=== PATIENT | female | born 1985 | race Caucasian/White ===

== ENCOUNTER 2020-02-11 12:17 | Outpatient (REF) | payer MEDICAID, SELFPAY ==
[2020-02-11 14:41] LABS: *AMPHETAMINES SCREEN URINE Negative (Negative); *BARBITURATES SCREEN URINE Negative (Negative); *BENZODIAZEPINES SCREEN URINE Negative (Negative); Cannabinoids THC Negative (Negative); Cocaine Screen,Urine Negative (Negative); METHADONE URINE SCREEN Negative (Negative); OPIATES URINE SCREEN Negative (Negative)
[2020-02-11 14:48] LABS: Tricyclic Antidepressants Negative (Negative)
[2020-02-16 11:24] LABS: Buprenorphine Negative; Norbuprenorphine Negative
== END 2020-02-11 12:37 ==
LOC: LBN 12:17
PROVIDERS: Visit Provider Advanced Practice Midwife
DX: Z34.92 Encounter for supervision of normal pregnancy, unspecified, second trimester (principal)
CPT/HCPCS: 80307

== ENCOUNTER 2020-02-19 01:48 | Outpatient (CLI) | payer MEDICAID, SELFPAY ==
--- NOTE | 2020-02-19 06:30 | DI.US_ITS ---
EXAM: US OB 2-3 TRIMESTER CLINICAL HISTORY: routine pnc,Z34.90. COMPARISON: No exams were available for comparison TECHNIQUE: Transabdominal obstetrical ultrasound performed. FINDINGS: Sonographic images demonstrate a single intrauterine gestation in variable position. Placenta:Anterior. No evidence of previa. Predicted gestational age: 22 weeks 3 days Estimated date of delivery 21 June 2020: heart rate motion is Dopplered at: 152 BPM. BPD: 58mm = 23+ 6 weeks HC: 215mm = 23+4 weeks AC: 183mm = 23+1 weeks FL: 40mm = 23+ 0 weeks EFW: 566 grams Grams = 78 % Sonographically assessed composite gestational age: 23+3 weeks Estimated date of delivery based on this ultrasound is: 14 June 2020 Amount of fluid is within normal limits. IMPRESSION: size and weight are within the expected range. survey is within normal limits. DATA REPOSITORY:
== END 2020-02-19 02:08 ==
PROVIDERS: Visit Provider Advanced Practice Midwife
DX: Z34.92 Encounter for supervision of normal pregnancy, unspecified, second trimester (principal); Z3A.23 23 weeks gestation of pregnancy
CPT/HCPCS: 76805

== ENCOUNTER 2020-04-07 08:12 | Outpatient (CLI) | payer MEDICAID, SELFPAY ==
[2020-04-07 16:38] LABS: Glucose,1 Hr (Glucola) 99 mg/dL (80-140)
[2020-04-07 16:41] LABS: HCT 32.2 % (36.0-46.0); HGB 10.8 g/dL (11.2-15.7); MCH 30.3 pg (27.0-33.0); MCHC 33.5 % (32.0-36.0); MCV 90.4 fL (80-95); MPV 11.3 fL (8.0-11.0); Platelet Count 222 10^3/uL (130-400); RBC 3.56 10^6/uL (3.93-5.22); RDW 12.7 % (11.7-14.6); RDW-SD 41.9 fL; WBC 10.67 10^3/uL (4.4-10.8)
== END 2020-04-07 08:32 ==
PROVIDERS: Visit Provider Advanced Practice Midwife
DX: Z34.93 Encounter for supervision of normal pregnancy, unspecified, third trimester (principal); Z3A.28 28 weeks gestation of pregnancy
CPT/HCPCS: 36415; 82950; 85027; 86850; 86900; 86901

== ENCOUNTER 2020-05-29 02:43 | Outpatient (CLI) | payer MEDICAID, SELFPAY ==
--- NOTE | 2020-05-29 06:30 | DI.US_ITS ---
EXAM: US OB ADELINE WEIGHT CLINICAL HISTORY: SIZE LESS THAN DATES,ADELINE,ADVANCED MATERNAL AGE,O09.529. TECHNIQUE: Transabdominal obstetrical ultrasound performed. COMPARISON: US US OB 2-3 TRIMESTER from 02/19/2020 FINDINGS: Transabdominal obstetrical ultrasound performed. FINDINGS: Number of fetuses: One. position: Cephalic. Placental location: Anterior. No evidence of previa. BIOMETRIC DATA: BPD: 92 mm = 37 weeks 2 days HC: 330 mm = 37 weeks 4 days AC: 345 mm = 38 weeks 3 days FL: 70 mm = 35 weeks 6 days EFW: 3259 grms 78% Composite Age: 37 weeks 2 days EDC: 06/17/2020 Heart Rate: 150BPM Amniotic fluid index: 17.0 cm. Visually, amount of fluid is within normal limits. The umbilical artery Doppler appears within normal limits. All umbilical artery values (S/D, RI, PI) are within the 50th to 95th percentile. IMPRESSION: 1. Single live intrauterine gestation as above. 2. Estimated weight is 3259gms. 3. Amniotic fluid index is 17 cm. Visually within normal limits. DATA REPOSITORY:
== END 2020-05-29 03:03 ==
PROVIDERS: Visit Provider Advanced Practice Midwife
DX: O09.523 Supervision of elderly multigravida, third trimester (principal)
CPT/HCPCS: 76816

== ENCOUNTER 2020-05-29 10:31 | Outpatient (REF) | payer MEDICAID, SELFPAY ==
[2020-05-29 11:08] LABS: *AMPHETAMINES SCREEN URINE Negative (Negative); *BARBITURATES SCREEN URINE Negative (Negative); *BENZODIAZEPINES SCREEN URINE Negative (Negative); Cannabinoids THC Negative (Negative); Cocaine Screen,Urine Negative (Negative); METHADONE URINE SCREEN Negative (Negative); OPIATES URINE SCREEN Negative (Negative)
[2020-05-29 11:09] LABS: Tricyclic Antidepressants Negative (Negative)
[2020-06-02 23:10] LABS: Buprenorphine Negative ng/mL (Cutoff: 5.0); Norbuprenorphine Negative ng/mL (Cutoff: 2.5)
== END 2020-05-29 10:32 | disposition home or self-care (01) ==
LOC: LBN 10:31
PROVIDERS: Visit Provider Advanced Practice Midwife
DX: Z34.93 Encounter for supervision of normal pregnancy, unspecified, third trimester (principal); Z36.85 Encounter for antenatal screening for Streptococcus B
CPT/HCPCS: 80307; 87081

== ENCOUNTER 2020-06-23 00:35 | Observation (INO) | payer MEDICAID, SELFPAY ==
[2020-06-23 01:05] VITALS: BP 120/82; PULSE 64; RESP 18; TEMP 36.8
[2020-06-23 01:42] VITALS: BP 120/82; PULSE 66; RESP 18; TEMP 36.8
--- NOTE | 2020-06-23 08:53 | W.PM.OBHPL1 ---
Date of service: 06/23/20 Time of Service: 01:40 Assessment and Plan Assessment and plan (1) Spontaneous onset of labor: Status: Acute Assessment and plan: SVE by RN. Cervix is closed and no evidence of active labor. Signs of labor were reviewed and Deborah returned home to await active labor. She has a friend and her weight engineer for support. OB-HPI Labor/Delivery History of Present Illness Reason for Visit: R/O LABOR Chief Complaint: Uterine Contractions. MICHELLE Calculator Estimated Delivery Date Method Current WG Current Estimate 06/21/20 Ultrasound #1 40w 2d Other Estimates 06/25/20 LMP (Uncertain) 39w 5d Comments: Deborah has been having irregular contractions all day. She has been supported by her weight engineer at home. Her contractions are every 2-4 minutes. History of Present Expected Delivery Route/Plan - CNM FOB: not involved, [place] Certified weight engineer Anabela Solomon for support, Doesn't want to know gender; if male, no circ Desires tub for labor and maybe To breastfeed, *important to pt that she be asked permission before touching* GBS neg Specific Issues/Plan 1. Transfer of care to [facility] from [facility] at 21 wks; had relocated from [place] transferring to [facility] at 10 weeks 2. Single parenting, very distressed about situation, has appt. /w. Dr. Ian Mercado ~02/14/20. 3. AMA- optional labs all wnl- ASA daily recommended 4. Received first covid vaccine [facility] Medical History (Updated 06/23/20 @ 08:58 by Jesenia Biggs CNM) Anxiety Chronic eczema (~02/11/20) Depression Surgical History (Updated 02/11/20 @ 09:07 by Cory Denson CNM) [place] teeth extracted Family History (Updated 02/11/20 @ 09:10 by Cory Denson CNM) Mother Hyperlipidemia Father Pacemaker Alcohol abuse Sister Cerebral palsy Depression Sister Thyroid disease Brother Depression Social History Smoking risk assessment performed?: No History History 1 Para 0 Hx # Term Pregnancies 0 Multiple births 0 Hx # Pregnancies 0 Ectopic pregnancies 0 AB induced 0 Hx Number of Living Children 0 AB spontaneous 0 Meds Home Medications and Allergies Allergies Allergy/AdvReac Type Severity Reaction Status Date / Time No Known Allergies Allergy Verified 06/19/20 08:56 Home Medications Medication Instructions Recorded Confirmed Type lactobacillus combination no.8 3 3,000 mmu cells PO DAILY 02/11/20 03/12/20 History billion cell capsule vitamin with calcium 1 tab PO DAILY #90 tab 03/12/20 Rx no.72-iron 27 mg-folic acid 1 mg tablet aspirin 162.5 mg capsule,extended 162.5 mg PO DAILY 04/28/20 04/28/20 History release 24 hr ferrous sulfate 325 mg (65 mg 325 mg PO DAILY 05/29/20 History iron) tablet Exam Physical Exam Vital signs: Temp Pulse Resp BP 98.2 F 66 18 120/82 06/23/20 01:42 06/23/20 01:42 06/23/20 01:42 06/23/20 01:42 Detailed Labor and Delivery Exam Dilation: 0 Landis Score: Cervical Points Exam 0 1 2 3 Dilation Closed 1-2cm 3-4 cm 5-6cm Effacement 0-30% 40-50% 60-70% 80% Consistency Firm Medium Soft Station -3 -2 -1,0 +1,+2 Position Posterior Mid Anterior Amniotic Membrane Status: Intact Contraction Frequency(min): every 2-4 Contraction Duration(sec): 50 Contraction Intensity: Mild Fetus A Heart Rate Baseline: 140 Monitor Accelerations: 15 X 15 Monitor Decelerations: None Variability: Moderate (6-25 BPM) Categories: Category I Results Results Group Beta Strep: Negative Blood Type: A+ Rubella Status: Immune Varicella Immunity: Immune Risk Assessment Risk for Shoulder Dystocia Historical/Initial OB: NEGATIVE FOR: Pelvic Abnormality, Pre- BMI>30, Previous Shoulder Dystocia or Previous Macrosomia Delivery Plan @ 36wks: spont labor, Risk for Pre-Eclampsia Date Initiated/Initials: 02/11/20 al, started at 21 wks Yes, if one or more: NEGATIVE FOR: Hx Pre-E/Gest HTN, Chronic HTN, Multiple Gestation, Pre-gestational DM, Renal Disease, Systemic Lupus or APA Syndrome Yes, if 2 or more: POSITIVE FOR: Nulliparity and Age>= 35 yrs; NEGATIVE FOR: >10yr btwn pregnancies, BMI>30, ethinicty, Mother/Sister w/ Pre-E or Previous IUGR Risk for Post- Hemorrhage Initial: NEGATIVE FOR: Multiple Gestation, Previous PPH, Known Clotting Deficiency, Grand Multiparity or Anticoagulation Risks Reviewed Risks Reviewed Upon Admission: Yes
--- NOTE | 2020-06-23 09:00 | W.PM.OBDISCH ---
Date of service: 06/23/20 Time of Service: 01:40 DS: Diagnosis Discharge Diagnosis (1) Spontaneous onset of labor: Status: Acute Asessment and Plan: signs of active labor reviewed. Deborah returned home to rest and will return with signs of active labor. Discharge Plan Disposition Patient Disposition: HOME Condition: Good Discharge Details Reason For Visit: R/O LABOR Admit Date/Time: 06/23/20 00:35 Admit Provider: Jesenia Biggs Attending Provider: Jesenia Biggs Primary Care Provider: Unknown,Unknown Home Meds and New Rx's Prescriptions: No Action Adult Probiotic 3 billion cell capsule 3,000 mmu cells PO DAILY RF: 0 aspirin 162.5 mg capsule,extended release 24hr 162.5 mg PO DAILY RF: 0 ferrous sulfate [Feosol] 325 mg (65 mg iron) tablet 325 mg PO DAILY RF: 0 PrePlus 27 mg iron- 1 mg tablet 1 tab PO DAILY Qty: 90 RF: 3 Discharge Instructions Instructions: Early Labor Signs (DC) Activity:: Activity as Tolerated Equipment/Supplies:: No Equipment Needed Diet:: As Tolerated Discharge Orders Discharge Orders: Discharge Order (Routine); Ordered 06/23/20 Ordered By: Jesenia Biggs Discharge Data Discharge Date/Time-TO BE ENTERED AT DEPARTURE: 06/23/20 01:45 OB:DS Summary Contraception Discussed Contraception Discussed: No, Status at Discharge Functional status at discharge: independent ambulation Overall status at discharge: patient is back to baseline Mental Status: mental status grossly normal Speech and Movement: speech and movement normal Mood: congruent mood Affect: normal affect Exam Physical Exam Vital signs: Temp Pulse Resp BP 98.2 F 66 18 120/82 06/23/20 01:42 06/23/20 01:42 06/23/20 01:42 06/23/20 01:42 [facility] Medical History (Updated 06/23/20 @ 08:58 by Jesenia Biggs CNM) Anxiety Chronic eczema (~02/11/20) Depression Surgical History (Updated 02/11/20 @ 09:07 by Cory Denson CNM) [place] teeth extracted Family History (Updated 02/11/20 @ 09:10 by Cory Denson CNM) Mother Hyperlipidemia Father Pacemaker Alcohol abuse Sister Cerebral palsy Depression Sister Thyroid disease Brother Depression Social History Smoking risk assessment performed?: No History History 1 Para 0 Hx # Term Pregnancies 0 Multiple births 0 Hx # Pregnancies 0 Ectopic pregnancies 0 AB induced 0 Hx Number of Living Children 0 AB spontaneous 0 DS: Data Vitals/I&O Vitals and I&O: Vital Signs Temperature 98.2 F 06/23/20 01:42 Pulse 66 06/23/20 01:42 Respiratory Rate 18 06/23/20 01:42 Blood Pressure 120/82 06/23/20 01:42 Blood Pressure Mean 94 06/23/20 01:05 Oxygen Delivery Method Room Air 06/23/20 01:42 Oxygen Flow Rate 0 06/23/20 01:42 Pain Level 3 06/23/20 01:42
== END 2020-06-23 01:45 | disposition home or self-care (01) ==
PROVIDERS: Admitting Provider Advanced Practice Midwife; Visit Provider Advanced Practice Midwife
DX: O47.1 False labor at or after 37 completed weeks of gestation (principal); Z3A.40 40 weeks gestation of pregnancy
CPT/HCPCS: G0378

== ENCOUNTER 2020-06-24 04:51 | Inpatient (IN) | payer MEDICAID, SELFPAY ==
[2020-06-24] VITALS (20 sets, daily range): BP systolic 107–274; BP diastolic 60–173; PULSE 61–113; RESP 16–20; TEMP 36.5–36.9; O2SAT 96–98
--- NOTE | 2020-06-24 07:19 | HPE_ITS ---
Date of service: 06/24/20 Time of Service: 07:20 Assessment and Plan Assessment and plan (1) Spontaneous onset of labor: Status: Acute Assessment and plan: Admit to Center. Comfort measures. Covid- 19 test. Anticipate . OB-HPI Labor/Delivery History of Present Illness Reason for Visit: RULE OUT LABOR Chief Complaint: Uterine Contractions. MICHELLE Calculator Estimated Delivery Date Method Current WG Current Estimate 06/21/20 Ultrasound #1 40w 3d Other Estimates 06/25/20 LMP (Uncertain) 39w 6d Comments: Prodromal labor x 36 hours. Assessed 06/23 at 0100. cervix closed. Took benadryl x 2 and slept intermittently yesterday. History of Present Expected Delivery Route/Plan - CNM FOB: not involved, [place] Certified eneida Solomon for support, Doesn't want to know gender; if male, no circ Desires tub for labor and maybe To breastfeed, *important to pt that she be asked permission before touching* GBS neg Specific Issues/Plan 1. Transfer of care to [facility] from [facility] at 21 wks; had relocated from [place] transferring to [facility] at 10 weeks 2. Single parenting, very distressed about situation, has appt. /w. Dr. Ian Mercado ~02/14/20. 3. AMA- optional labs all wnl- ASA daily recommended 4. Received first covid vaccine [facility] Medical History (Updated 06/23/20 @ 08:58 by Jesenia Biggs CNM) Anxiety Chronic eczema (~02/11/20) Depression Surgical History (Updated 02/11/20 @ 09:07 by Cory Denson CNM) [place] teeth extracted Family History (Updated 02/11/20 @ 09:10 by Cory Denson CNM) Mother Hyperlipidemia Father Pacemaker Alcohol abuse Sister Cerebral palsy Depression Sister Thyroid disease Brother Depression Social History Smoking/Tobacco Use Status: Never Smoking risk assessment performed?: Yes History History 1 Para 0 Hx # Term Pregnancies 0 Multiple births 0 Hx # Pregnancies 0 Ectopic pregnancies 0 AB induced 0 Hx Number of Living Children 0 AB spontaneous 0 Meds Home Medications and Allergies Allergies Allergy/AdvReac Type Severity Reaction Status Date / Time No Known Allergies Allergy Verified 06/19/20 08:56 Home Medications Medication Instructions Recorded Confirmed Type lactobacillus combination no.8 3 3,000 mmu cells PO DAILY 02/11/20 03/12/20 History billion cell capsule vitamin with calcium 1 tab PO DAILY #90 tab 03/12/20 Rx no.72-iron 27 mg-folic acid 1 mg tablet aspirin 162.5 mg capsule,extended 162.5 mg PO DAILY 04/28/20 04/28/20 History release 24 hr ferrous sulfate 325 mg (65 mg 325 mg PO DAILY 05/29/20 History iron) tablet Exam Physical Exam Vital signs: Temp Pulse Resp BP 97.9 F 61 18 113/74 06/24/20 04:57 06/24/20 04:57 06/24/20 04:57 06/24/20 04:57 Vital Signs Reviewed: Yes Constitutional Constitutional: mild distress Detailed Labor and Delivery Exam Dilation: 3 Effacement (%): 100 station: -1 Cervix position: mid Consistency: soft Landis Score: Cervical Points Exam 0 1 2 3 Dilation Closed 1-2cm 3-4 cm 5-6cm Effacement 0-30% 40-50% 60-70% 80% Consistency Firm Medium Soft Station -3 -2 -1,0 +1,+2 Position Posterior Mid Anterior Amniotic Membrane Status: Intact Contraction Frequency(min): Q4 min Contraction Duration(sec): 50-60 Contraction Intensity: Mild/Moderate Comments: The cervix was closed and stenotic on initial SVE by RN. I examined Deborah at 0715 and the os admitted one finger which allowed the cervix to stretch to 3 cms. Large bulging bag of water. Fetus A Heart Rate Baseline: 130 Monitor Accelerations: 15 X 15 Monitor Decelerations: None Variability: Moderate (6-25 BPM) Presentation: Vertex Categories: Category I Respiratory Exam Respiratory Exam: Normal Cardiovascular Exam Cardiovascular Exam: Normal Abdominal Exam Abdominal Exam: Normal Exam Exam: Normal Extremities Exam Extremities Exam: Normal Skin Exam Skin Exam: Normal Psychiatric Exam Psychiatric Exam: Normal (fatigued) Results Results Group Beta Strep: Negative Blood Type: A+ Rubella Status: Immune Risk Assessment Risk for Shoulder Dystocia Historical/Initial OB: NEGATIVE FOR: Pelvic Abnormality, Pre- BMI>30, Previous Shoulder Dystocia or Previous Macrosomia Delivery Plan @ 36wks: spont labor, Risk for Pre-Eclampsia Date Initiated/Initials: 02/11/20 al, started at 21 wks Yes, if one or more: NEGATIVE FOR: Hx Pre-E/Gest HTN, Chronic HTN, Multiple Gestation, Pre-gestational DM, Renal Disease, Systemic Lupus or APA Syndrome Yes, if 2 or more: POSITIVE FOR: Nulliparity and Age>= 35 yrs; NEGATIVE FOR: >10yr btwn pregnancies, BMI>30, ethinicty, Mother/Sister w/ Pre-E or Previous IUGR Risk for Post- Hemorrhage Initial: NEGATIVE FOR: Multiple Gestation, Previous PPH, Known Clotting Deficiency, Grand Multiparity or Anticoagulation At Risk?: No Risks Reviewed Risks Reviewed Upon Admission: Yes
[2020-06-24 08:08] LABS: HCT 36.7 % (36.0-46.0); HGB 12.4 g/dL (11.2-15.7); MCH 29.8 pg (27.0-33.0); MCHC 33.8 % (32.0-36.0); MCV 88.2 fL (80-95); MPV 11.1 fL (8.0-11.0); Platelet Count 262 10^3/uL (130-400); RBC 4.16 10^6/uL (3.93-5.22); RDW 13.2 % (11.7-14.6); RDW-SD 43.2 fL; WBC 13.71 10^3/uL (4.4-10.8)
--- NOTE | 2020-06-24 10:36 | W.PM.OBNL1 ---
Date of service: 06/24/20 Time of Service: 10:36 Pelvic Exam Dilation: 6 Effacement (%): 100 station: -1 Cervix Position: mid Consistency: soft Vaginal Exam Presentation: Cephalic Contractions Monitor Mode: External Contraction Frequency(min): every 4 Contraction Duration(sec): 60 Intensity: Mild/Moderate Fetus A Monitor: Doppler Heart Rate Baseline: 140 Presentation: Vertex Assessment and Plan Assessment and plan (1) Spontaneous onset of labor: Status: Acute Assessment and plan: Coping well with contractions. SVE performed and cervix 6 cms. Comfort measures provided. AROM discussed and Deborah is considering this option. Anticipate Objective Abnormal lab results 06/24/20 Range/Units 07:50 WBC 13.71 H (4.4-10.8) 10^3/uL MPV 11.1 H (8.0-11.0) fL Temp Pulse Resp BP 98.4 F 69 20 113/83 06/24/20 07:56 06/24/20 07:58 06/24/20 07:56 06/24/20 07:58 Laboratory Results WBC 13.71 10^3/uL (4.4-10.8) H 06/24/20 07:50 RBC 4.16 10^6/uL (3.93-5.22) 06/24/20 07:50 Hgb 12.4 g/dL (11.2-15.7) 06/24/20 07:50 Hct 36.7 % (36.0-46.0) 06/24/20 07:50 MCV 88.2 fL (80-95) 06/24/20 07:50 MCH 29.8 pg (27.0-33.0) 06/24/20 07:50 MCHC 33.8 % (32.0-36.0) 06/24/20 07:50 RDW 13.2 % (11.7-14.6) 06/24/20 07:50 Plt Count 262 10^3/uL (130-400) 06/24/20 07:50 MPV 11.1 fL (8.0-11.0) H 06/24/20 07:50 Patient ABO/Rh A Positive 06/24/20 07:50 Antibody Screen Negative 06/24/20 07:50 Subjective Patient Reports: No new Complaints Interval history since last seen: Deborah is coping well but fatigued. She is using the shower and various positions for comfort. Therapeutic rest was discussed but upon SVE, cervix is now 6 cms dilated. Results Hemoglobin/Hematocrit: Hgb 12.4 g/dL (11.2-15.7) 06/24/20 07:50 Hct 36.7 % (36.0-46.0) 06/24/20 07:50 Abnormal Lab Findings: Abnormal Labs 06/24/20 07:50 WBC 13.71 H MPV 11.1 H
[2020-06-24 10:37] LABS: Source Nasal/Nares
[2020-06-24 11:15] LABS: COVID-19 PCR Negative (Negative)
--- NOTE | 2020-06-24 14:49 | PGE_ITS ---
Date of service: 06/24/20 Time of Service: 14:50 Informed Consent Informed Consent: Risk,Benefits,Alternatives Discussed (AROM vs. expectant management) Pelvic Exam Dilation: 9 Effacement (%): 100 station: 0 Position: Other (unable to determine due to large bulging membranes) Cervix Position: mid Consistency: soft Vaginal Exam Presentation: Vertex Pooling: Negative Contractions Monitor Mode: Palpation Contraction Frequency(min): every 3-4 minutes Contraction Duration(sec): 60 Intensity: Moderate/Strong Fetus A Monitor: Doppler Heart Rate Baseline: 128 Presentation: Vertex FHR Rhythm: Regular Characteristics: Normal Decelerations: None Assessment and Plan Assessment and plan (1) Spontaneous onset of labor: Status: Acute Assessment and plan: Coping well with contractions. SVE performed and cervix 9/100/0. Deborah requested to return to the tub for comfort. She is experiencing a slight urge to bear down. Comfort measures provided. Anticipate Objective Abnormal lab results 06/24/20 Range/Units 07:50 WBC 13.71 H (4.4-10.8) 10^3/uL MPV 11.1 H (8.0-11.0) fL Temp Pulse Resp BP Pulse Ox 98.1 F 86 20 133/86 98 06/24/20 14:39 06/24/20 14:39 06/24/20 14:39 06/24/20 14:39 06/24/20 14:39 Laboratory Results WBC 13.71 10^3/uL (4.4-10.8) H 06/24/20 07:50 RBC 4.16 10^6/uL (3.93-5.22) 06/24/20 07:50 Hgb 12.4 g/dL (11.2-15.7) 06/24/20 07:50 Hct 36.7 % (36.0-46.0) 06/24/20 07:50 MCV 88.2 fL (80-95) 06/24/20 07:50 MCH 29.8 pg (27.0-33.0) 06/24/20 07:50 MCHC 33.8 % (32.0-36.0) 06/24/20 07:50 RDW 13.2 % (11.7-14.6) 06/24/20 07:50 Plt Count 262 10^3/uL (130-400) 06/24/20 07:50 MPV 11.1 fL (8.0-11.0) H 06/24/20 07:50 COVID-19 Source Nasal/nares 06/24/20 07:54 SARS-CoV-2 (PCR) Negative (Negative) 06/24/20 07:54 Patient ABO/Rh A Positive 06/24/20 07:50 Antibody Screen Negative 06/24/20 07:50 Subjective Patient Reports: No new Complaints Interval history since last seen: Agustina's labor continues to progress slowly with slight descent from -1 to 0 noted. She was using the tub for a long time and is coping well. She got out of the tub and ambulated and sat on the toilet for a while. She is receiving excellent support from Prabha, her parcel post carrier. SVE was performed and large bulging bag of water was palpated. She declines AROM and she said that she feels that that would make her feel 'rushed. Results Hemoglobin/Hematocrit: Hgb 12.4 g/dL (11.2-15.7) 06/24/20 07:50 Hct 36.7 % (36.0-46.0) 06/24/20 07:50 Abnormal Lab Findings: Abnormal Labs 06/24/20 07:50 WBC 13.71 H MPV 11.1 H
--- NOTE | 2020-06-24 17:39 | PGE_ITS ---
Date of service: 06/24/20 Time of Service: 17:39 Informed Consent Informed Consent: Risk,Benefits,Alternatives Discussed (AROM vs. expectant management, discussed pitocin augmentation if indicated.) Pelvic Exam Dilation: 8 Effacement (%): 100 station: 0 Position: OP Cervix Position: mid Consistency: soft Vaginal Exam Presentation: Vertex Pooling: Positive Comments: AROM performed in the tub for a large amount of clear fluid. The ce rvix is edematous and 8-9 cms prior to ROM. Contractions Monitor Mode: External Contraction Frequency(min): every 4 min Contraction Duration(sec): 60 Intensity: Moderate Fetus A Monitor: External (US) Heart Rate Baseline: 135 Presentation: Vertex Variability: Moderate (6-25 BPM) Categories: Category I FHR Rhythm: Regular Characteristics: Normal Accelerations: 15 X 15 Decelerations: None Amniotic Membrane Status: Ruptured Rupture Method: Artifical Amniotic Fluid: Clear Assessment and Plan Assessment and plan (1) Spontaneous onset of labor: Status: Acute Assessment and plan: Will continue to assess progress in labor. Will reassess by SVE 2 hours after AROM and discuss options if there is no progress. Will continue to offer pain relief methods. I discussed this plan with Dr Reyes who is the covering drill rig operator helper today and she agrees. Objective Abnormal lab results 06/24/20 Range/Units 07:50 WBC 13.71 H (4.4-10.8) 10^3/uL MPV 11.1 H (8.0-11.0) fL Temp Pulse Resp BP Pulse Ox 97.9 F 76 18 132/87 97 06/24/20 17:19 06/24/20 17:19 06/24/20 17:19 06/24/20 17:19 06/24/20 16:09 Laboratory Results WBC 13.71 10^3/uL (4.4-10.8) H 06/24/20 07:50 RBC 4.16 10^6/uL (3.93-5.22) 06/24/20 07:50 Hgb 12.4 g/dL (11.2-15.7) 06/24/20 07:50 Hct 36.7 % (36.0-46.0) 06/24/20 07:50 MCV 88.2 fL (80-95) 06/24/20 07:50 MCH 29.8 pg (27.0-33.0) 06/24/20 07:50 MCHC 33.8 % (32.0-36.0) 06/24/20 07:50 RDW 13.2 % (11.7-14.6) 06/24/20 07:50 Plt Count 262 10^3/uL (130-400) 06/24/20 07:50 MPV 11.1 fL (8.0-11.0) H 06/24/20 07:50 COVID-19 Source Nasal/nares 06/24/20 07:54 SARS-CoV-2 (PCR) Negative (Negative) 06/24/20 07:54 Patient ABO/Rh A Positive 06/24/20 07:50 Antibody Screen Negative 06/24/20 07:50 Subjective Patient Reports: No new Complaints Interval history since last seen: Deborah's labor has shown no progress since the previous exam. I discussed with her pitocin augmentation and/or to increase the frequency of her contractions. She declines an I.V. or pitocin augmentation. She declines pain medications. She expressed that she hopes for labor to progress naturally. She is very tired. She used the tub a second time for comfort for another 2.5 hours. She agreed to Artificial rupture of membranes and that was performed. She has been drinking adequate amounts of water for hydration. I encouraged her to ambulate and she was placed on the external monitor while seated on the toilet and ambulating in the room. Results Hemoglobin/Hematocrit: Hgb 12.4 g/dL (11.2-15.7) 06/24/20 07:50 Hct 36.7 % (36.0-46.0) 06/24/20 07:50 Abnormal Lab Findings: Abnormal Labs 06/24/20 07:50 WBC 13.71 H MPV 11.1 H
--- NOTE | 2020-06-24 19:28 | PGE_ITS ---
Date of service: 06/24/20 Time of Service: 19:28 Informed Consent Informed Consent: Risk,Benefits,Alternatives Discussed (AROM vs. expectant management, discussed pitocin augmentation if indicated.) Pelvic Exam Dilation: 8 Effacement (%): 100 station: +1 Position: OP Cervix Position: mid Consistency: soft Vaginal Exam Presentation: Vertex Pooling: Positive Contractions Monitor Mode: Palpation Contraction Frequency(min): every 4 min Intensity: Moderate/Strong Fetus A Monitor: External (US) Heart Rate Baseline: 140 Presentation: Vertex Variability: Moderate (6-25 BPM) Categories: Category I FHR Rhythm: Regular Characteristics: Normal Accelerations: 15 X 15 Decelerations: None Amniotic Membrane Status: Ruptured Assessment and Plan Assessment and plan (1) Spontaneous onset of labor: Status: Acute Assessment and plan: After a monitor tracing, will plan to continue with hydrotherapy and reassess in 1 hour. Assist with pushing when appropriate. A nticipate . Objective Abnormal lab results 06/24/20 Range/Units 07:50 WBC 13.71 H (4.4-10.8) 10^3/uL MPV 11.1 H (8.0-11.0) fL Temp Pulse Resp BP Pulse Ox 98.2 F 83 18 135/91 H 96 06/24/20 18:45 06/24/20 19:14 06/24/20 19:14 06/24/20 19:14 06/24/20 18:45 Laboratory Results WBC 13.71 10^3/uL (4.4-10.8) H 06/24/20 07:50 RBC 4.16 10^6/uL (3.93-5.22) 06/24/20 07:50 Hgb 12.4 g/dL (11.2-15.7) 06/24/20 07:50 Hct 36.7 % (36.0-46.0) 06/24/20 07:50 MCV 88.2 fL (80-95) 06/24/20 07:50 MCH 29.8 pg (27.0-33.0) 06/24/20 07:50 MCHC 33.8 % (32.0-36.0) 06/24/20 07:50 RDW 13.2 % (11.7-14.6) 06/24/20 07:50 Plt Count 262 10^3/uL (130-400) 06/24/20 07:50 MPV 11.1 fL (8.0-11.0) H 06/24/20 07:50 COVID-19 Source Nasal/nares 06/24/20 07:54 SARS-CoV-2 (PCR) Negative (Negative) 06/24/20 07:54 Patient ABO/Rh A Positive 06/24/20 07:50 Antibody Screen Negative 06/24/20 07:50 Subjective Patient Reports: No new Complaints Interval history since last seen: Deborah continues to use the tub and shower. She has been bearing down with contractions. When I asked her if she was feeling an urge to push, she stated she was pushing because I don't want pitocin. I examined her and her cervix remains 8-9 cms. It is loose and stretchy and the vertex is now at +1. She attempted a few pushes but the cervix was not reduceable. She is receiveing a lot of help with her contractions by pressure from her two doulas and this is helpful to her. After the exam, she was positioned on her hands and knees on the ball and she requested to return to the tub. Results Hemoglobin/Hematocrit: Hgb 12.4 g/dL (11.2-15.7) 06/24/20 07:50 Hct 36.7 % (36.0-46.0) 06/24/20 07:50 Abnormal Lab Findings: Abnormal Labs 06/24/20 07:50 WBC 13.71 H MPV 11.1 H
--- NOTE | 2020-06-24 22:44 | W.PM.OBNL1 ---
Date of service: 06/24/20 Time of Service: 23:28 Informed Consent Informed Consent: Risk,Benefits,Alternatives Discussed (AROM vs. expectant management) Pelvic Exam Dilation: 10 Effacement (%): 100 station: +2 Position: OP Vaginal Exam Presentation: Vertex Pooling: Positive Contractions Monitor Mode: External Contraction Frequency(min): every 4 min Contraction Duration(sec): 60 Intensity: Moderate/Strong Fetus A Monitor: External (US) Heart Rate Baseline: 150 Presentation: Vertex Variability: Moderate (6-25 BPM) Categories: Category I FHR Rhythm: Regular Characteristics: Normal Accelerations: Absent Decelerations: None Assessment and Plan Assessment and plan (1) Spontaneous onset of labor: Status: Acute Assessment and plan: Continue to assist with pushing. anticipate . Continuous monitor placed to assess FHR pattern Objective Abnormal lab results 06/24/20 Range/Units 07:50 WBC 13.71 H (4.4-10.8) 10^3/uL MPV 11.1 H (8.0-11.0) fL Temp Pulse Resp BP Pulse Ox 98.2 F 78 18 128/79 96 06/24/20 18:45 06/24/20 21:34 06/24/20 19:14 06/24/20 21:34 06/24/20 18:45 Laboratory Results WBC 13.71 10^3/uL (4.4-10.8) H 06/24/20 07:50 RBC 4.16 10^6/uL (3.93-5.22) 06/24/20 07:50 Hgb 12.4 g/dL (11.2-15.7) 06/24/20 07:50 Hct 36.7 % (36.0-46.0) 06/24/20 07:50 MCV 88.2 fL (80-95) 06/24/20 07:50 MCH 29.8 pg (27.0-33.0) 06/24/20 07:50 MCHC 33.8 % (32.0-36.0) 06/24/20 07:50 RDW 13.2 % (11.7-14.6) 06/24/20 07:50 Plt Count 262 10^3/uL (130-400) 06/24/20 07:50 MPV 11.1 fL (8.0-11.0) H 06/24/20 07:50 COVID-19 Source Nasal/nares 06/24/20 07:54 SARS-CoV-2 (PCR) Negative (Negative) 06/24/20 07:54 Patient ABO/Rh A Positive 06/24/20 07:50 Antibody Screen Negative 06/24/20 07:50 Subjective Patient Reports: New Complaints Interval history since last seen: Deborah has a strong uge to push and has been bearing down. A persistent anterior rim of cervix is present and I have atempted to reduce it with pushing with no success. Deborah has pushed in the shower, on toilet , on stool and in the tub with slow descent. She returned to bed and the anterior rim was reduced and she is pushing well. Results Hemoglobin/Hematocrit: Hgb 12.4 g/dL (11.2-15.7) 06/24/20 07:50 Hct 36.7 % (36.0-46.0) 06/24/20 07:50 Abnormal Lab Findings: Abnormal Labs 06/24/20 07:50 WBC 13.71 H MPV 11.1 H
[2020-06-25] VITALS (12 sets, daily range): BP systolic 95–139; BP diastolic 55–69; PULSE 75–85; RESP 16–18; TEMP 36.7–36.8; O2SAT 97
[2020-06-25] MEDS: Oxytocin 10 UNITS/ML VIAL IM (01:20)
--- NOTE | 2020-06-25 01:23 | W.OBDELIVERY ---
Date of service: 06/25/20 Time of Service: 01:23 OB Labor/ Delivery Information Baby A Delivery Delivery Method: Spontaneaous Presentation: Vertex Vertex Position: Right Occipital Anterior Cord Description-Baby A: 3 Vessels Amniotic Fluid: Clear Delivery Outcome: Liveborn Transferred: Remains with Mother Note: FHTs 130-140 by doppler during first stage of labor. FHTs 150-160s in second stage. Deborah progressed to full dilation after multiple attempts to reduce anterior lip of cervix after she began pushing. Second stage huddle was done. Deborah pushed well in multiple positions and had a spontaneous delivery of male delivered in NOEL position. The baby rotated to ADAM and the shoulders delivered with Deborah placed in [place] position due to hand presenting with the face and rotation of the head. Baby was placed on mother's abdomen and dried and stimulated. He had a spontaneous cry but decreased tone. Large asymmetric caput was noted on the baby's head. Cord was clamped and cut by Deborah. The placenta delivered spontaneously and appears to by intact with a three vessel cord. Pitocin 10 units was administered after delivery of the placenta. The perineum was inspected and there was a first degree laceration which was repaired with 3-0 vicryl suture under local anesthetic which Deborah tolerated well. The baby did breastfeed well after delivery. After delivery, Mother and baby were stable and bonding well in the delivery room. The uterus was 1 above U and to the left one hour after delivery. She was unable to void on the bedpan and a straight catherter was inserted. Labor/Delivery Information Number of Babies in Womb: 1 Group Beta Strep: Negative Rubella Status: Immune Blood Type: A+ Varicella Immunity: Immune Maternal Complications: None Stages of Labor Onset of Labor Date: 06/21/20 Onset of Labor Time: 22:00 Complete Dilatation Date: 06/24/20 Complete Dilatation Time: 23:15 Labor - Stage 1 Duration: 72 hours and 0 minutes ROM Baby A: 06/24/20 ROM Baby A: 16:20
[2020-06-25] MEDS: Ibuprofen 600 MG TAB PO ×3 (02:18→21:51)
[2020-06-25] MEDS: Acetaminophen 325 MG TAB 650 MG PO ×3 (02:19→21:51)
[2020-06-25 10:54] LABS: Varicella IgG Antibody Positive (See Note)
[2020-06-26 02:00] VITALS: BP 82/39; PULSE 75; RESP 18; TEMP 36.6
[2020-06-26 06:07] VITALS: BP 98/63; PULSE 75; RESP 18
[2020-06-26] MEDS: Docusate Sodium 100 MG CAP PO (06:40)
[2020-06-26] MEDS: Milk of Magnesia 30 ML CUP PO (06:41)
[2020-06-26 07:26] LABS: HCT 31.1 % (36.0-46.0); HGB 10.5 g/dL (11.2-15.7); MCH 30.2 pg (27.0-33.0); MCHC 33.8 % (32.0-36.0); MCV 89.4 fL (80-95); MPV 11.3 fL (8.0-11.0); Platelet Count 255 10^3/uL (130-400); RBC 3.48 10^6/uL (3.93-5.22); RDW 13.9 % (11.7-14.6); RDW-SD 45.6 fL; WBC 17.57 10^3/uL (4.4-10.8)
[2020-06-26] MEDS: Ibuprofen 600 MG TAB PO ×2 (07:45→15:30)
[2020-06-26] MEDS: Acetaminophen 325 MG TAB 650 MG PO ×2 (07:46→15:30)
[2020-06-26 08:00] VITALS: BP 98/63; PULSE 65; RESP 18; TEMP 36.6; O2SAT 99
--- NOTE | 2020-06-26 09:25 | W.PM.OBPNV1 ---
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 PP instructions reviewed and written copy will be given to pt PPD and baby-blues discussed at length Pt declines BCM, states she will not be sexually active F/up at 2 & 6 wks PP with baseball glove stuffer Subjective Subjective Patient comments: Pain well controlled, Tolerating diet and Flatus present [place] baby status: Doing well, Nursing well, Rooming in and Strong Bonding Observed feeding status: Exclusively breast feeding Exam Physical Exam Vital signs: Temp Pulse Resp BP Pulse Ox 97.9 F 65 18 98/63 L 99 06/26/20 08:00 06/26/20 08:00 06/26/20 08:00 06/26/20 08:00 06/26/20 08:00 Vital Signs Reviewed: Yes Constitutional Constitutional: no acute distress, average body habitus and cooperative HEENT Exam HEENT Exam: Normal Neck Exam Neck Exam: Normal Breast Exam Bilateral: Breast Exam: Normal and Soft Nipple Exam: Normal and Other (slightly pinked, pt reports minor soreness) Respiratory Exam Respiratory Exam: Normal Cardiovascular Exam Cardiovascular Exam: Normal Abdominal Exam Abdomen: Other (soft and nontender) Fundal Exam Fundus: Below Umbilicus and Firm Rectal Exam Rectal Exam: Normal Exam Perineum: Normal and Repair Intact External: Present vulvar erythema (labia majora mildly bruised and edematous bilaterally) Extremities Exam Extremity Exam: Normal Back/Spine/Pelvis Exam Back Exam: Normal Skin Exam Skin Exam: Normal Neurological Exam Neurological Exam: Normal Psychiatric Exam Psychiatric Exam: Normal DetailedPsychiatric Exam Psych Exam: Normal Affect (processing experience, appropriately emotional), Normal Thougth Process, Cooperative, Good Insight and Good Judgement Results Abnormal Lab Findings: Abnormal Labs 06/24/20 06/26/20 07:50 07:05 WBC 13.71 H 17.57 H RBC 3.48 L Hgb 10.5 L Hct 31.1 L MPV 11.1 H 11.3 H
--- NOTE | 2020-06-26 12:35 | W.PM.OBDISCH ---
Date of service: 06/26/20 Time of Service: 12:35 DS: Diagnosis Discharge Diagnosis (1) Term delivered: Status: Acute Discharge Plan Disposition Patient Disposition: HOME Condition: Good Discharge Details Reason For Visit: RULE OUT LABOR Admit Date/Time: 06/24/20 07:14 Admit Provider: Jesenia Biggs Attending Provider: Jesenia Biggs Primary Care Provider: Unknown,Unknown Hospital Course Hospital Course: and nml course, discharge on PPD#1 at pt request Home Meds and New Rx's Prescriptions: No Action Adult Probiotic 3 billion cell capsule 3,000 mmu cells PO DAILY RF: 0 ferrous sulfate [Feosol] 325 mg (65 mg iron) tablet 325 mg PO DAILY RF: 0 PrePlus 27 mg iron- 1 mg tablet 1 tab PO DAILY Qty: 90 RF: 3 Discharge Instructions Additional Instructions: Please make a 2 and 6 wk appt for care with your midwives Stand Alone Forms: BC Instructions, NB [place] Instructions, BC Post Vaginal Deliver Activity:: Activity as Tolerated Equipment/Supplies:: No Equipment Needed Diet:: Normal Diet Discharge Orders Discharge Orders: Discharge Order (Routine); Ordered 06/26/20 Ordered By: Agueda Larson OB:DS Summary Summary Vaginal Delivery Method: Spontaneaous Episiotomy Description: None Laceration Description: Perineal Laceration Extension: First Degree Contraception Discussed Contraception Discussed: Yes Contraceptive Plan: Not planning to use, Infant Gender-Baby A: Male weight: 8 lb 7.452 oz Infant Gender-Baby B: Male Status at Discharge Functional status at discharge: independent ambulation Overall status at discharge: patient is progressing back to baseline Mental Status: mental status grossly normal Speech and Movement: speech and movement normal and speech clear Mood: congruent mood Affect: normal affect Exam Physical Exam Vital signs: Temp Pulse Resp BP Pulse Ox 97.9 F 65 18 98/63 L 99 06/26/20 08:00 06/26/20 08:00 06/26/20 08:00 06/26/20 08:00 06/26/20 08:00 Constitutional Constitutional: no acute distress, average body habitus and cooperative HEENT Exam HEENT Exam: Normal Neck Exam Neck Exam: Normal Breast Exam Bilateral: Breast Exam: Normal and Soft Respiratory Exam Respiratory Exam: Normal Cardiovascular Exam Cardiovascular Exam: Normal Abdominal Exam Abdomen: Other (soft and nontender) Fundal Exam Fundus: Below Umbilicus and Firm Rectal Exam Rectal Exam: Normal Exam Perineum: Normal and Repair Intact External: Present vulvar erythema (labia majora mildly bruised and edematous bilaterally) Extremities Exam Extremity Exam: Normal Back/Spine/Pelvis Exam Back Exam: Normal Skin Exam Skin Exam: Normal Neurological Exam Neurological Exam: Normal Psychiatric Exam Psychiatric Exam: Normal [facility] Medical History (Updated 06/26/20 @ 08:02 by Agueda Larson) AMA (advanced maternal age) multigravida 35+ taking lo dose ASA daily Anxiety Chronic eczema (~02/11/20) Depression Spontaneous onset of labor Surgical History (Updated 02/11/20 @ 09:07 by Cory Denson CNM) [place] teeth extracted Family History (Updated 02/11/20 @ 09:10 by Cory Denson CNM) Mother Hyperlipidemia Father Pacemaker Alcohol abuse Sister Cerebral palsy Depression Sister Thyroid disease Brother Depression Social History Smoking/Tobacco Use Status: Never Smoking risk assessment performed?: Yes Drug use: Never Do you feel safe at home: Yes Do you feel safe in your relationship?: Yes History History 1 Para 0 Hx # Term Pregnancies 0 Multiple births 0 Hx # Pregnancies 0 Ectopic pregnancies 0 AB induced 0 Hx Number of Living Children 0 AB spontaneous 0 DS: Data Vitals/I&O Vitals and I&O: Vital Signs Temperature 97.9 F 06/26/20 08:00 Pulse 65 06/26/20 08:00 Pulse Rhythm Regular 06/26/20 08:04 Respiratory Rate 18 06/26/20 08:00 Blood Pressure 98/63 L 06/26/20 08:00 Blood Pressure Mean 74 06/26/20 08:00 Pulse Oximetry 99 06/26/20 08:00 Oxygen Delivery Method Room Air 06/24/20 07:56 Oxygen Flow Rate 0 06/24/20 07:56 Pain Level 4 06/26/20 08:00 Intake & Output 06/25/20 06/26/20 06/26/20 23:59 11:59 23:59 Output Total 900 / 3100 Balance -900 / -2550 Output: Urine 900 / 3100 Other: Urine Color Yellow Data Completed and Pending Labs on day of discharge: Labs from last 24 hours 06/26/20 07:05 WBC 17.57 H RBC 3.48 L Hgb 10.5 L Hct 31.1 L MCV 89.4 MCH 30.2 MCHC 33.8 RDW 13.9 Plt Count 255 MPV 11.3 H
[2020-06-27 17:16] VITALS: BP 118/72; PULSE 72
[2020-06-27 20:36] VITALS: BP 112/66; PULSE 77
[2020-06-27 20:38] VITALS: PULSE 70; O2SAT 97
== END 2020-06-26 16:24 | disposition home or self-care (01) | DRG 807 ==
PROVIDERS: Admitting Provider Advanced Practice Midwife; Visit Provider Advanced Practice Midwife
DX: O99.344 Other mental disorders complicating childbirth (principal); Z37.0 Single live birth; F41.8 Other specified anxiety disorders; O70.0 First degree perineal laceration during delivery; Z3A.39 39 weeks gestation of pregnancy
CPT/HCPCS: 36415; 85027; 86787; 86850; 86900; 86901; 87635; G0378; J2590